=== PATIENT | female | born 1960 | race Caucasian/White ===

== ENCOUNTER 2019-10-03 11:18 | Outpatient (CLI) | payer OTHER, SELFPAY ==
[2019-10-03 11:30] LABS: Add Urine Microscopic? YES; Appearance Urine Clear (Clear); Bilirubin Urine Negative (Negative); Blood Urine 1+ (Negative); Color Urine Yellow (Yellow); Glucose Urine UA Negative (Negative); Ketones Urine Negative (Negative); Leukocyte Esterase Ur Trace LEU/UL (Negative); Nitrate Urine Negative (Negative); Protein Urine Negative (Negative); Urobilinogen Urine 0.2 mg/dL (0.2-1.0)
[2019-10-03 11:31] LABS: Basophils Absolute Auto 0.02 K/mm3 (0.00-0.10); Basophils Percent Auto 0.4 % (0.0-1.0); Eosinophils Absolute Auto 0.05 K/mm3 (0.02-0.50); Hematocrit 39.9 % (35.0-49.0); Hemoglobin 13.3 g/dL (12.0-15.0); Immature Granulocyte Absolute 0.01 K/mm3 (0.00-0.00); Immature Granulocyte Percent A 0.2 % (0.0-0.0); Lymphocytes Absolute Auto 1.61 K/mm3 (1.10-4.50); Lymphocytes Percent Auto 31.4 % (18.0-42.0); Mean Corpuscular HGB Conc 33.3 g/dL (32.0-36.0); Mean Corpuscular Hemoglobin 34.4 pg (27.0-31.0); Mean Corpuscular Volume 103.1 fL (78.0-102.0); Mean Platelet Volume 8.8 fl (9.2-11.8); Monocytes Absolute Auto 0.48 K/mm3 (0.10-0.90); Monocytes Percent Auto 9.4 % (2.0-11.0); Neutrophils Percent Auto 57.6 % (50.0-70.0); Platelet Count Result 236 K/mm3 (150-420); Red Blood Count 3.87 M/mm3 (4.20-5.40); Red Cell Distribution Width 12.3 % (11.6-14.4); White Blood Count 5.1 K/mm3 (4.8-10.8)
[2019-10-03 11:37] LABS: Bacteria Urine 2+ /hpf; Squamous Epithelial Cell Urine Few /hpf (Few)
[2019-10-03 12:08] LABS: Free T4 Free Thyroxine 0.97 ng/dL (0.76-1.46); Thyroid Stimulating Hormone 3.12 uIU/mL (0.36-3.74)
[2019-10-03 16:51] LABS: Vitamin B12 < 80 pg/mL (193-986)
[2019-10-08 04:41] LABS: Red Blood Cell Folate 595 ng/mL RBC (>280)
[2019-10-09 20:05] LABS: Intrinsic Factor Blocking Ab Positive (Negative)
[2019-10-10 09:07] LABS: Methylmalonic Acid 513 nmol/L (87-318)
== END 2019-10-03 11:19 | disposition home or self-care (01) ==
LOC: CHSLAB 11:21
PROVIDERS: PCP Internal Medicine; Visit Provider Internal Medicine
DX: E03.9 Hypothyroidism, unspecified (principal); R31.9 Hematuria, unspecified; D64.9 Anemia, unspecified; E53.8 Deficiency of other specified B group vitamins
CPT/HCPCS: 36415; 81001; 82607; 82747; 83921; 84439; 84443; 85025; 86340

== ENCOUNTER 2020-10-15 08:02 | Outpatient (CLI) | payer OTHER, SELFPAY ==
--- NOTE | ~2020-10-15 | MM_ITS ---
EXAMINATION: MM screening [facility] BI w aaron HISTORY: Screening TECHNIQUE: Craniocaudal and mediolateral oblique 3-D tomosynthesis images were obtained and synthetic 2-D images were generated. CAD analysis was submitted and interpreted. COMPARISON: Comparison to multiple prior studies sequentially, with oldest reviewed study dated 05/2013. BREAST PARENCHYMAL COMPOSITION: The breasts are heterogeneously dense, which may obscure small masses . FINDINGS: There is no evidence of suspicious mass, calcification, or architectural distortion to sugg est malignancy in either breast. There has been no suspicious interval change. IMPRESSION: 1. No mammographic evidence of malignancy. 2. Recommend routine screening mammography in one year. BI-RADS Category 1: Negative Reviewed, dictated and finalized at location A.
--- NOTE | ~2020-10-15 | DEXA_ITS ---
Bone Density Report Name: Cristela Mcknight Age: 60 Sex: Female Ethnicity: White Date of : 1960 Indication: osteopenia; Referring Provider: Manasa Zhang Study: Bone densitometry was performed. Exam Date: October 15, 2020 Accession number: [id number] Bone Density: Region BMD T-score Z-score Classification AP Spine(L1-L4) 0.910 -1.2 0.0 Osteopenia Femoral Neck (Left) 0.623 -2.0 -0.8 Osteopenia Total Hip (Left) 0.752 -1.6 -0.7 Osteopenia Femoral Neck (Right) 0.615 -2.1 -0.9 Osteopenia Total Hip (Right) 0.724 -1.8 -0.9 Osteopenia Femoral Neck Mean 0.619 -2.1 -0.9 Osteopenia Total Hip Mean 0.738 -1.7 -0.8 Osteopenia World Health Organization criteria for BMD impression classify patients as: Normal (T-score at or above -1.0), Osteopenia (T-score between -1.0 and -2.5), or Osteoporosis (T-score at or below -2.5). 10-year Fracture Risk(1): Major Osteoporotic Fracture 7.7% Hip Fracture 1.1% Reported Risk Factors: [place] (), Neck BMD=0.615, BMI=19.2 (1) FRAX(R) Version 3.08. Fracture probability calculated for an untreated patient. Fracture probability may be lower if the patient has received treatment. Previous Exams: Region Exam Age BMD T-score BMD Change BMD Change Date g/cm2 vs Baseline vs Previous AP Spine (L1-L4) 10/15/2020 60 0.910 -1.2 -0.189 (-17.2% -0.059 (-6.1%) 02/09/2017 56 0.969 -0.7 -0.130 (-11.8% -0.130 (-11.8% 10/08/2007 47 1.099 0.5 Total Hip(Left) 10/15/2020 60 0.752 -1.6 -0.104 (-12.1% 0.007 (0.9%)# 02/09/2017 56 0.745 -1.6 -0.111 (-12.9% -0.111 (-12.9% 10/08/2007 47 0.856 -0.7 Total Hip(Right) 10/15/2020 60 0.724 -1.8 -0.135 (-15.7% -0.135 (-15.7% 10/08/2007 47 0.859 -0.7 *Denotes significance at 95% confidence level, LSC for AP Spine = 0.022 g/cm2, LSC for Total Hip = 0.027 g/cm2 # Denotes dissimilar scan types or analysis methods Clinical Information Provided by Patient: Has used the following medications: Vitamin D, Calcium Patient maximum height was 69 No regular weight bearing exercise Does not regularly consume dairy products Drinks caffeinated beverages Onset of menses at age 16 Number of children 2 Impression: The patient has low bone mass, based on the Right Femoral Neck T-score. No significant bone loss was observed. Discussion: BONE DENSITY IS LOW AT ONE OR MORE SKELETAL SITES. This patient's lowest T-score is low at o
== END 2020-10-15 08:03 | disposition home or self-care (01) ==
LOC: CHSIMG 08:04
PROVIDERS: PCP Internal Medicine; Visit Provider Student in an Organized Health Care Education/Training Program
DX: Z12.31 Encounter for screening mammogram for malignant neoplasm of breast (principal); Z78.0 Asymptomatic menopausal state
CPT/HCPCS: 77063; 77067; 77080

== ENCOUNTER 2021-10-18 07:23 | Outpatient (CLI) | payer BC, SELFPAY ==
--- NOTE | ~2021-10-18 | MM_ITS ---
EXAMINATION: MM screening [facility] BI w aaron HISTORY: Screening mammogram TECHNIQUE: Craniocaudal and mediolateral oblique 3-D tomosynthesis images were obtained and synthetic 2-D images were generated. CAD analysis was submitted and interpreted. COMPARISON: 10/15/2020, 02/18/2019, 02/12/2018 BREAST PARENCHYMAL COMPOSITION: There are scattered areas of fibroglandular density. FINDINGS: There is no suspicious mass, calcification, or architectural distortion to suggest malignan cy in either breast. There has been no suspicious interval change. IMPRESSION: 1. No mammographic evidence of malignancy. 2. Recommend routine screening mammography in one year. BI-RADS Category 1: Negative Reviewed, dictated and finalized at location A.
== END 2021-10-18 07:24 | disposition home or self-care (01) ==
LOC: CHSIMG 07:24
PROVIDERS: PCP Internal Medicine; Visit Provider Student in an Organized Health Care Education/Training Program
DX: Z12.31 Encounter for screening mammogram for malignant neoplasm of breast (principal)
CPT/HCPCS: 77063; 77067

== ENCOUNTER 2022-12-26 08:30 | Outpatient (CLI) | payer BC, SELFPAY ==
--- NOTE | ~2022-12-26 | MM_ITS ---
EXAMINATION: MM screening eli BI w aaron HISTORY: Screening TECHNIQUE: Craniocaudal and mediolateral oblique 3-D tomosynthesis images were obtained and synthetic 2-D images were generated. CAD analysis was submitted and interpreted. COMPARISON: Comparison to multiple prior studies sequentially, with oldest reviewed study dated 01/12. BREAST PARENCHYMAL COMPOSITION: The breasts are heterogeneously dense, which may obscure small masses . FINDINGS: There is no evidence of suspicious mass, calcification, or architectural distortion to sugg est malignancy in either breast. There has been no suspicious interval change. IMPRESSION: 1. No mammographic evidence of malignancy. 2. Recommend routine screening mammography in one year. BI-RADS Category 1: Negative Reviewed, dictated and finalized at location A.
== END 2022-12-26 08:31 | disposition home or self-care (01) ==
LOC: CHSIMG 08:33
PROVIDERS: PCP Internal Medicine; Visit Provider Registered Nurse
DX: Z12.31 Encounter for screening mammogram for malignant neoplasm of breast (principal)
CPT/HCPCS: 77063; 77067

== ENCOUNTER 2023-03-07 13:54 | Outpatient (CLI) | payer BC, SELFPAY ==
--- NOTE | ~2023-03-07 | DEXA_ITS ---
Bone Density Report Name: BOBO LARES Age: 62 Sex: Female Ethnicity: White Date of : 1960 Indication: postmenopausal; screening for osteoporosis; height loss; Referring Provider: MARTHA WINTERS Study: Bone densitometry was performed. Exam Date: March 07, 2023 Accession number: [id number] Bone Density: Region BMD T-score Z-score Classification AP Spine(L1-L4) 0.901 -1.3 0.1 Osteopenia Femoral Neck (Left) 0.632 -2.0 -0.7 Osteopenia Total Hip (Left) 0.723 -1.8 -0.8 Osteopenia Femoral Neck (Right) 0.580 -2.4 -1.1 Osteopenia Total Hip (Right) 0.701 -2.0 -1.0 Osteopenia Femoral Neck Mean 0.606 -2.2 -0.9 Osteopenia Total Hip Mean 0.712 -1.9 -0.9 Osteopenia World Health Organization criteria for BMD impression classify patients as: Normal (T-score at or above -1.0), Osteopenia (T-score between -1.0 and -2.5), or Osteoporosis (T-score at or below -2.5). 10-year Fracture Risk(1): Major Osteoporotic Fracture 9.6% Hip Fracture 1.7% Reported Risk Factors: [place] (), Neck BMD=0.580, BMI=19.8 (1) FRAX(R) Version 3.08. Fracture probability calculated for an untreated patient. Fracture probability may be lower if the patient has received treatment. Clinical Information Provided by Patient: Has used the following medications: Vitamin D, Calcium Patient maximum height was 69 Menopause Age: 52 No regular weight bearing exercise Does not regularly consume dairy products Drinks caffeinated beverages Onset of menses at age 16 Number of children 2 Impression: The patient has low bone mass, based on the Right Femoral Neck T-score. Discussion: BONE DENSITY IS LOW AT ONE OR MORE SKELETAL SITES. This patient's lowest T-score is low at one or more skeletal sites. It meets the World Health Organization's (WHO) criteria for ?low bone mass? (T-score between -1.0 and -2.5). The patient's 10-year risk of fracture as calculated by FRAX is less than the threshold where pharmacological therapy is recommended by the National Osteoporosis Foundation (NOF). However, all treatment decisions require clinical judgment and consideration of individual patient factors, including patient preferences, comorbidities, previous drug use, risk factors not captured in the FRAX model (e.g., frailty, falls, vitamin D deficiency, increased bone turnover, interval significant decline in bone density) and possible under or overestimation of fracture risk by FRAX. The patient should follow a healthful lifestyle (good nutrition with adequate calcium and vitamin D, and appropriate weight-bearing exercise). Follow-Up: Consider repeating this study in 2 to 3 years to reassess this patient's status, or sooner if there is some new clinical indication. Reported by: Dr. Julio Pierce on 03/07/2023 2:17:00 PM. Reviewed, dictated an
== END 2023-03-07 13:55 | disposition home or self-care (01) ==
LOC: CHSIMG 13:55
PROVIDERS: PCP Internal Medicine; Visit Provider Internal Medicine
DX: Z78.0 Asymptomatic menopausal state (principal); M85.89 Other specified disorders of bone density and structure, multiple sites
CPT/HCPCS: 77080

== ENCOUNTER 2024-01-08 07:24 | Outpatient (CLI) | payer BC, SELFPAY ==
--- NOTE | ~2024-01-08 | MM_ITS ---
EXAMINATION: MM screening eli BI w aaron HISTORY: Screening mammogram TECHNIQUE: Craniocaudal and mediolateral oblique 3-D tomosynthesis images were obtained and synthetic 2-D images were generated. CAD analysis was submitted and interpreted. COMPARISON: 12/26/2022, 10/18/2021, 10/15/2020 BREAST PARENCHYMAL COMPOSITION:Dense: The breasts are heterogeneously dense, which may obscure small masses. FINDINGS: No suspicious mass, calcification, or architectural distortion are identified in either gabi ast to suggest malignancy. There has been no suspicious interval change. IMPRESSION: No mammographic evidence of malignancy. Recommend routine screening mammography in one year. BI-RADS Category 1: Negative Reviewed, dictated and finalized at location .
== END 2024-01-08 07:25 | disposition home or self-care (01) ==
LOC: CHSIMG 07:24
PROVIDERS: PCP Internal Medicine; Visit Provider Internal Medicine
DX: Z12.31 Encounter for screening mammogram for malignant neoplasm of breast (principal)
CPT/HCPCS: 77063; 77067

== ENCOUNTER 2024-05-03 07:48 | Outpatient (CLI) | payer BC, SELFPAY ==
--- NOTE | ~2024-05-03 | DEXA_ITS ---
Bone Density Report Name: BOBO LARES Age: 63 Sex: Female Ethnicity: White Date of : 1960 Indication: osteopenia; monitoring treatment; Referring Provider: Trino Hedrick Study: Bone densitometry was performed. Exam Date: May 03, 2024 Accession number: [id number] Bone Density: Region BMD T-score Z-score Classification AP Spine(L1-L4) 0.909 -1.3 0.3 Osteopenia Femoral Neck (Left) 0.629 -2.0 -0.6 Osteopenia Total Hip (Left) 0.827 -0.9 0.1 Normal Femoral Neck (Right) 0.583 -2.4 -1.0 Osteopenia Total Hip (Right) 0.804 -1.1 -0.1 Osteopenia Femoral Neck Mean 0.606 -2.2 -0.8 Osteopenia Total Hip Mean 0.816 -1.0 0.0 Normal World Health Organization criteria for BMD impression classify patients as: Normal (T-score at or above -1.0), Osteopenia (T-score between -1.0 and -2.5), or Osteoporosis (T-score at or below -2.5). 10-year Fracture Risk: FRAX not reported because: Treated for osteoporosis Previous Exams: Region Exam Age BMD T-score BMD Change BMD Change Date g/cm2 vs Baseline vs Previous AP Spine (L1-L4) 05/03/2024 63 0.909 -1.3 -0.190 (-17.3% 0.008 (0.9%) 03/07/2023 62 0.901 -1.3 -0.198 (-18.0% -0.008 (-0.9%) 10/15/2020 60 0.910 -1.2 -0.189 (-17.2% -0.059 (-6.1%) 02/09/2017 56 0.969 -0.7 -0.130 (-11.8% -0.130 (-11.8% 10/08/2007 47 1.099 0.5 Total Hip(Left) 05/03/2024 63 0.827 -0.9 -0.029 (-3.4%) 0.104 (14.4%)* 03/07/2023 62 0.723 -1.8 -0.133 (-15.5% -0.029 (-3.9%) 10/15/2020 60 0.752 -1.6 -0.104 (-12.1% 0.007 (0.9%)# 02/09/2017 56 0.745 -1.6 -0.111 (-12.9% -0.111 (-12.9% 10/08/2007 47 0.856 -0.7 Total Hip(Right) 05/03/2024 63 0.804 -1.1 -0.055 (-6.4%) 0.103 (14.7%)* 03/07/2023 62 0.701 -2.0 -0.158 (-18.4% -0.023 (-3.2%) 10/15/2020 60 0.724 -1.8 -0.135 (-15.7% -0.135 (-15.7% 10/08/2007 47 0.859 -0.7 *Denotes significance at 95% confidence level, LSC for AP Spine = 0.022 g/cm2, LSC for Total Hip = 0.027 g/cm2 # Denotes dissimilar scan types or analysis methods Clinical Information Provided by Patient: Is being treated for osteoporosis Has used the following medications: Boniva (i.e. ibandronate), Vitamin D, Calcium Patient maximum height was 69.1 Menopause Age: 52 Does not regularly consume dairy products Drinks caffeinated beverages Onset of menses at age 16 Number of children 2 Impression: The patient has low bone mass, based on the Right Femoral Neck T-score. No significant bone loss was observed. Discussion: PATIENT UNDER TREATMENT WITH NO SIGNIFICANT BMD LOSS SINCE LAST EXAM. In an untreated patient, BMD typically declines with age. A lack of decline or gain is usually a sign that treatment is efficacious and fracture risk is reduced. It is important to ask patients whether they are taking their medications and to encourage continued and appropriate compliance with their osteoporosis therapies to reduce fracture risk. It is also important to review their risk factors and encourage appropriate calcium and vitamin D intakes, exercise, fall prevention and other lifestyle measures. Follow-Up: Consider a repeat BMD and Vertebral Fracture Assessment (VFA) exam in 2 years or sooner if medically necessary, to reassess this patient's status. Reported by: ÁNGEL on 05/03/2024 8:05:00 AM. Reviewed, dictated and finalized at location A.
--- OUTSIDE RECORDS SUMMARY | 2024-05-03 07:55 | XMS_ITS | Clinical Summary ---
Author Organization [facility] Address [facility] [place] [address] Care Team Providers Care Vp Integrity Name Role Phone Trino Hedrick MD Primary Care Provider Nely Franco MD Unavailable Allergies No known active allergies Medications ferrous sulfate 325 (65 FE) MG tablet Take 1 tablet (325 mg total) by mouth daily with breakfast. Active levothyroxine 25 MCG tablet Take 1 tablet (25 mcg total) by mouth every morning. Active vitamin B-12 250 MCG Tab Take 1 tablet (250 mcg total) by mouth daily. Active Calcium Carb-Cholecalci ferol (CALCIUM + VITAMIN D3 OR) Take 1 tablet by mouth daily. Active ibandronate (BONIVA) 150 MG tablet 4 Active verapamil (CALAN SR) 180 MG ER tablet Take 1 tablet (180 mg total) by mouth daily. 90 tablet 3 4 Active verapamil (CALAN) 40 MG tablet TAKE 1 TABLET BY MOUTH NEEDED FOR RHYTHM, TACHYCARDIA 90 tablet 1 4 Active Active Problems Problem Noted Date Diagnosed Date MVP (mitral valve prolapse) 03/25/2023 Nonrheumatic mitral valve regurgitation 03/18/19 21 History of PSVT (paroxysmal supraventricular tac hycardia) DVT (deep venous thrombosis) ([facility]) Resolved Problems Problem Noted Date Diagnosed Date Resolved Date Heart murmur 03/18/2020 Encounters Date Type Department Care Team Description 02/23/2024 9:00 AM BOW REHAIRER Office Visit [facility] [place] [address] Nely Franco MD Follow Up 02/23/2024 8:35 AM BOW REHAIRER - 02/23/2024 11:59 PM BOW REHAIRER Hospital Encounter [facility] [address] [place] [address] Nely Franco MD Discharge Disposition: Home or Self Care (Routine Discharge) 02/23/2024 Orders Only [facility] [address] [place] [address] Nely Franco MD 02/23/2024 Orders Only [facility] [address] [place] [address] Nely Franco MD 02/23/2024 Travel 02/19/2024 Orders Only [facility] [address] [place] [address] Nely Franco MD from Last 3 Months Family History Medical History Relation Comments Heart Disease Father Relation Status Comments Father has PPM Social History Tobacco Use Types Packs/Day Years Used Date Smoking Tobacco: Never Smokeless Tobacco: Never Tobacco Cessation:Counseling Given: Not Answered Alcohol Use Standard Drinks/Week Comments Yes 0 (1 standard drink = 0.6 oz pur e alcohol) 1 glass wine daily Comments Unknown Sex and Gender Information Value Date Recorded Sex Assigned at Not on file Legal Sex Female 7:14 PM CDT Gender Identity Not on file Sexual Orientation Not on file Last Filed Vital Signs Vital Sign Reading Time Taken Comments Blood Pressure 139/73 02/23/2024 11:38 AM BOW REHAIRER Pulse 81 02/23/2024 11:38 AM BOW REHAIRER Temperature - - Respiratory Rate 18 02/23/2024 11:38 AM BOW REHAIRER Oxygen Saturation 100% 02/23/2024 11:38 AM BOW REHAIRER Inhaled Oxygen Concentration - - Weight 58.5 kg (129 lb) 02/23/2024 11:38 AM BOW REHAIRER Height 175.3 cm (5' 9 ) 02/23/2024 11:38 AM BOW REHAIRER Body Mass Index 19.05 02/23/2024 11:38 AM BOW REHAIRER Plan of Treatment Upcoming Encounters Date Type Department Care Team (Late st Contact Info) Description 02/24/2025 8:30 AM BOW REHAIRER Appointment [facility] [address] [place] [address] Nely Franco MD [address] [place] [address] 02/28/2025 9:15 AM BOW REHAIRER Office Visit [facility] [address] [facility] [place] [id number] Nely Franco MD [address] [place] [address] Health Maintenance Due Date Last Done Comments Cervical Cancer Screening Pa p Smear (Age 30 to 64) Every 3 Years 1960 Colorectal Cancer Screening Colonoscopy (10 Years) 1960 Annual Physical 1965 Pneumococcal Vaccine: Pediatrics (0 to 5 Years) and At-Risk Patients (6 to 64 Years) (1 of 2 - PCV) 1968 Hepatitis C 1980 DTaP, Tdap and Td Vaccines ( 1 - Tdap) 1981 Cervical Cancer Screening Pa p with HPV Testing (Age 30 to 64) Every 5 Years 1992 Cervical Cancer Screening wi th HPV 1992 Mammogram Screening 2002 RSV Immunization or 60+ Years (1 - Risk 60-74 years 1-dose series) 2022 COVID-19 Vaccine ( - 2023-2 5 season) 2023 Influenza Adult (#1) 2023 Zoster Vaccines Completed 12/13/2019, 10/07/2019 Meningococcal B Vaccine Aged Out No l onger eligible based on patient's age to complete this topic Meningococcal Vaccine Aged Out No santiago estelle eligible based on patient's age to complete this topic RSV Immunizations Under 20 Months Aged Out No longer eligible b ased on patient's age to complete this topic Procedures Procedure Name Priority Date/Time Associated Diagnosis Comments ECG 12-LEAD Routine 02/23/2024 8:46 AM BOW REHAIRER Nonrheumatic mitral valve regurgitation from Last 3 Months Results * ECG 12 lead (HOSPITAL PERFORMED ONLY) (02/23/2024 8:46 AM BOW REHAIRER) 02/23/2024 8:46 AM BOW REHAIRER Narrative [facility] - 02/23/2024 10:19 PM BOW REHAIRER [address] 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: : 1960 Requested By: NELY FRANCO Order Number: [id number] Reading MD: Nely Franco Measurements Intervals [place] Rate: 67 P: 81 MO: 245 QRS: 83 QRSD: 77 T: 78 QT: 380 QTc: 404 Interpretive Statements SINUS RHYTHM WITH PROLONGED MO INTERVAL POSSIBLE RIGHT ATRIAL ENLARGEMENT [0.25mV P WAVE] MINIMAL VOLTAGE CRITERIA FOR LVH, CONSIDER NORMAL VARIANT [MEETS CRITERIAIN ONE OF: R(aVL), S(V1), R(V5), R(V5/V6)+S(V1)] REHAIRER us Nely Franco MD ECG ORDERABLES Final Result [facility] from Last [address] [place] [address] [place] [address] Care Teams Vp Integrity Relationship Specialty Start Date End Date Trino Hedrick MD [address] [place] [address] PCP - General INTERNAL MEDICINE 02/20/20 Nely Franco MD [address] [place] [address] Consulting Physician CARDIOVASCULAR DISEASE 07/06/23
== END 2024-05-03 07:49 | disposition home or self-care (01) ==
LOC: CHSIMG 07:49
PROVIDERS: PCP Internal Medicine; Visit Provider Internal Medicine
DX: Z78.0 Asymptomatic menopausal state (principal); M85.89 Other specified disorders of bone density and structure, multiple sites
CPT/HCPCS: 77080